=== PATIENT | female | born 1970 | race Caucasian/White ===

== ENCOUNTER → 2019-08-08 07:52 | Outpatient (CLI) | payer OTHER, BC, SELFPAY ==
[2019-08-08 08:21] LABS: Add Manual Diff / Slide Review NO; Basophils Absolute Auto 100 /uL (0-100); Basophils Percent Auto 1.4 % (0-2); Eosinophils Absolute Auto 300 /uL (0-450); Eosinophils Percent Auto 2.5 % (2-4); Hematocrit 41.3 % (36-46); Hemoglobin 13.6 g/dL (12.0-16.0); Lymphocytes Absolute Auto 2000 /uL (1100-4500); Lymphocytes Percent Auto 18.5 % (25-40); Mean Corpuscular HGB Conc 33.1 % (30-36); Mean Corpuscular Volume 84.8 fL (80-100); Monocytes Absolute Auto 600 /uL (0-900); Monocytes Percent Auto 5.2 % (3-14); Neutrophils Absolute Auto 7700 /uL (1500-7000); Neutrophils Percent Auto 72.4 % (50-75); Platelet Count 278 X10^3/uL (150-400); Red Blood Cell Count 4.86 X10^6/uL (4.0-5.2); Red Cell Distribution Width 13.9 % (11.6-14.8); White Blood Cell Count 10.7 X10^3/uL (4.5-11.0)
[2019-08-08 08:43] LABS: Alanine Aminotransferase 25 IU/L (<35); Albumin Globulin Ratio 1.4 (1.0-2.8); Alkaline Phosphatase 70 U/L (38-126); Aspartate Aminotransferase 30 IU/L (14-36); Bilirubin Total 0.5 mg/dL (0.2-1.3); Blood Urea Nitrogen 8 mg/dL (7-17); Calcium 9.2 mg/dL (8.4-10.2); Carbon Dioxide 29 mmol/L (22-32); Chloride 101 mmol/L (98-107); Cholesterol 200 mg/dL (140-199); Estimated Glomerular Filt Rate > 60.0 mL/min (>60); Globulin 2.9 g/dL (1.7-4.1); Glucose 119 mg/dL (70-100); HDL Cholesterol 45 mg/dL (40-60); HEMOLYSIS < 15 (0-50); LDL Cholesterol Calculated 90 mg/dL (<100); Potassium 4.7 mmol/L (3.4-5.1); Sodium 137 mmol/L (137-145); Total Protein 6.9 g/dL (6.3-8.2); Triglycerides 324 mg/dL (35-150)
== END ==
PROVIDERS: PCP Family Medicine; Visit Provider Family Medicine
DX: Z00.00 Encounter for general adult medical examination without abnormal findings (principal); Z13.220 Encounter for screening for lipoid disorders; Z13.6 Encounter for screening for cardiovascular disorders
CPT/HCPCS: 36415; 80053; 80061; 85025

== ENCOUNTER → 2021-11-15 07:20 | Outpatient (CLI) | payer BC, SELFPAY | PROVIDERS: PCP Family Medicine; Visit Provider Nurse Practitioner Family | DX: R30.0 Dysuria (principal) | CPT/HCPCS: 87086 ==

== ENCOUNTER → 2022-02-04 16:03 | Outpatient (CLI) | payer BC, SELFPAY ==
[2022-02-04 17:14] LABS: Follicle Stimulating Hormone 9.45 mIU/mL
[2022-02-04 17:39] LABS: TSH w/ Reflex to FT4 2.47 uIU/mL (0.47-4.68)
== END ==
PROVIDERS: PCP Family Medicine; Referring Provider Obstetrics & Gynecology; Visit Provider Obstetrics & Gynecology
DX: N93.9 Abnormal uterine and vaginal bleeding, unspecified (principal)
CPT/HCPCS: 36415; 83001; 84443

== ENCOUNTER → 2022-05-25 09:42 | Outpatient (CLI) | payer BC, SELFPAY | PROVIDERS: PCP Family Medicine; Visit Provider Registered Nurse | DX: R30.0 Dysuria (principal) | CPT/HCPCS: 87086 ==

== ENCOUNTER → 2022-07-04 08:56 | Outpatient (CLI) | payer BC, SELFPAY ==
[2022-07-04 09:55] LABS: Add Manual Diff / Slide Review NO; Basophils Absolute Auto 100 /uL (0-100); Basophils Percent Auto 1.2 % (0-2); Eosinophils Absolute Auto 200 /uL (0-450); Eosinophils Percent Auto 2.5 % (2-4); Hematocrit 37.8 % (36-46); Hemoglobin 12.4 g/dL (12.0-16.0); Lymphocytes Absolute Auto 2000 /uL (1100-4500); Lymphocytes Percent Auto 20.4 % (25-40); Mean Corpuscular HGB Conc 32.8 % (30-36); Mean Corpuscular Hemoglobin 27.4 PG (26-34); Mean Corpuscular Volume 83.5 fL (80-100); Monocytes Absolute Auto 600 /uL (0-900); Monocytes Percent Auto 5.8 % (3-14); Neutrophils Absolute Auto 6800 /uL (1500-7000); Neutrophils Percent Auto 70.1 % (50-75); Platelet Count 287 X10^3/uL (150-400); Red Blood Cell Count 4.52 X10^6/uL (4.0-5.2); Red Cell Distribution Width 14.1 % (11.6-14.8); White Blood Cell Count 9.6 X10^3/uL (4.5-11.0)
[2022-07-04 10:18] LABS: Alanine Aminotransferase 17 IU/L (<35); Albumin 3.7 g/dL (3.5-5.0); Albumin Globulin Ratio 1.2 (1.0-2.8); Alkaline Phosphatase 73 U/L (38-126); Aspartate Aminotransferase 17 IU/L (14-36); BUN Creatinine Ratio 11.5 (6-22); Bilirubin Total 0.3 mg/dL (0.2-1.3); Blood Urea Nitrogen 6 mg/dL (7-17); Calcium 8.7 mg/dL (8.4-10.2); Carbon Dioxide 28 mmol/L (22-32); Chloride 102 mmol/L (98-107); Cholesterol 191 mg/dL (140-199); Estimated Glomerular Filt Rate > 60 mL/min (>60); Globulin 3.1 g/dL (1.7-4.1); Glucose 108 mg/dL (70-100); HDL Cholesterol 46 mg/dL (40-60); HEMOLYSIS < 15 (0-50); LDL Cholesterol Calculated 95 mg/dL (<100); Potassium 4.5 mmol/L (3.4-5.1); Sodium 139 mmol/L (137-145); Total Protein 6.8 g/dL (6.3-8.2); Triglycerides 251 mg/dL (35-150)
[2022-07-04 10:40] LABS: TSH w/ Reflex to FT4 2.16 uIU/mL (0.47-4.68)
[2022-07-04 12:18] LABS: Creatinine Urine Random 107.6 mg/dL
[2022-07-04 12:22] LABS: Microalbumi Creatinin Ratio Ur 20.4 ug/mg CR (<30); Microalbumin Urine Random 2.2 mg/dL (0-1.6)
== END ==
PROVIDERS: PCP Family Medicine; Referring Provider Family Medicine; Visit Provider Family Medicine
DX: G89.29 Other chronic pain (principal); J45.20 Mild intermittent asthma, uncomplicated; M54.40 Lumbago with sciatica, unspecified side; R73.9 Hyperglycemia, unspecified; Z68.43 Body mass index [BMI] 50.0-59.9, adult
CPT/HCPCS: 36415; 80053; 80061; 82043; 82570; 83036; 84443; 85025

== ENCOUNTER → 2023-03-26 10:33 | Outpatient (CLI) | payer OTHER, BC, SELFPAY ==
--- NOTE | 2023-03-26 10:35 | DI.RAD.S_ITS ---
PROCEDURE: XR KNEE RT 3V INDICATIONS: bilateral knee pain, Left greater than right TECHNIQUE: 3 views of the knee were acquired. COMPARISON: [facility], , KNEE 3V RIGHT, 02/11/2016, 16:11. FINDINGS: Bones: No fractures or dislocations. No suspicious bony lesions. There is lateral tilt of patella. Mild osteoarthritic changes. Soft tissues: Trace joint effusion. No suspicious soft tissue calcifications. IMPRESSION: 1. Mild osseous ranges. 2. Lateral to the patella. 3. Trace knee joint effusion. Dictated by: Elizabeth Cortes M.D. on 03/26/2023 at 11:58 Approved by: Elizabeth Cortes M.D. on 03/26/2023 at 11:59
--- NOTE | 2023-03-26 10:35 | DI.RAD.S_ITS ---
PROCEDURE: XR KNEE LT 3V INDICATIONS: bilateral knee pain, Left greater than right TECHNIQUE: 3 views of the knee were acquired. COMPARISON: [facility], , KNEE 3V LEFT, 04/23/2009, 10:47. FINDINGS: Bones: No fractures or dislocations. No suspicious bony lesions. There is lateral tilt of patella. Soft tissues: Small joint effusion. No suspicious soft tissue calcifications. Soft tissue swelling in the area of the medial patella. IMPRESSION: 1. Lateral tilt of patella. And soft tissue swelling in the medial aspect of the patella. 2. Small knee joint effusion. 3. If clinical symptoms persist or clinical suspicion for internal derangement is high, MRI is suggested for further evaluation. Dictated by: Elizabeth Cortes M.D. on 03/26/2023 at 11:55 Approved by: Elizabeth Cortes M.D. on 03/26/2023 at 11:57
== END ==
PROVIDERS: PCP Family Medicine; Referring Provider Family Medicine; Visit Provider Family Medicine
DX: M22.8X2 Other disorders of patella, left knee (principal); M22.8X1 Other disorders of patella, right knee; M25.561 Pain in right knee; M25.562 Pain in left knee; M25.462 Effusion, left knee; M79.89 Other specified soft tissue disorders
CPT/HCPCS: 73562

== ENCOUNTER → 2024-01-01 08:32 | Outpatient (CLI) | payer BC, SELFPAY ==
--- NOTE | 2024-01-01 08:33 | DI.RAD.S_ITS ---
PROCEDURE: XR KNEE RT 3V INDICATIONS: chronic right knee pain TECHNIQUE: 3 views of the knee were acquired. COMPARISON: [facility], XR KNEE BILATERAL STANDING UP, 03/07/2016, 9:24. [facility], CR, XR KNEE LT 3V, 03/26/2023, 10:31. [facility], CR, XR KNEE RT 3V, 03/26/2023, 10:31. FINDINGS: Bones: No fractures or dislocations. No suspicious bony lesions. Mild tricompartmental knee joint degeneration. Lateral patellar subluxation. Soft tissues: No joint effusion. No suspicious soft tissue calcifications. IMPRESSION: 1. Mild degenerative joint disease. Dictated by: Elizabeth Cortes M.D. on 01/01/2024 at 10:48 Approved by: Elizabeth Cortes M.D. on 01/01/2024 at 10:54
== END ==
PROVIDERS: PCP Family Medicine; Referring Provider Family Medicine; Visit Provider Family Medicine
DX: M17.11 Unilateral primary osteoarthritis, right knee (principal)
CPT/HCPCS: 73562

== ENCOUNTER → 2024-03-10 08:53 | Outpatient (CLI) | payer BC, SELFPAY ==
[2024-03-10 10:17] LABS: Add Manual Diff / Slide Review NO; Basophils Absolute Auto 100 /uL (0-100); Eosinophils Absolute Auto 200 /uL (0-450); Eosinophils Percent Auto 2.6 % (2-4); Hematocrit 38.4 % (36-46); Hemoglobin 12.7 g/dL (12.0-16.0); Lymphocytes Absolute Auto 1800 /uL (1100-4500); Lymphocytes Percent Auto 18.7 % (25-40); Mean Corpuscular Hemoglobin 26.9 PG (26-34); Mean Corpuscular Volume 81.5 fL (80-100); Monocytes Absolute Auto 600 /uL (0-900); Monocytes Percent Auto 5.8 % (3-14); Neutrophils Absolute Auto 6900 /uL (1500-7000); Neutrophils Percent Auto 71.9 % (50-75); Platelet Count 266 X10^3/uL (150-400); Red Blood Cell Count 4.71 X10^6/uL (4.0-5.2); White Blood Cell Count 9.6 X10^3/uL (4.5-11.0)
[2024-03-10 10:41] LABS: Alanine Aminotransferase 37 IU/L (<35); Albumin 3.7 g/dL (3.5-5.0); Albumin Globulin Ratio 1.2 (1.0-2.8); Alkaline Phosphatase 83 U/L (38-126); Aspartate Aminotransferase 39 IU/L (14-36); BUN Creatinine Ratio 12.5 (6-22); Bilirubin Total 0.5 mg/dL (0.2-1.3); Blood Urea Nitrogen 7 mg/dL (7-17); Calcium 8.5 mg/dL (8.4-10.2); Carbon Dioxide 28 mmol/L (22-32); Chloride 105 mmol/L (98-107); Cholesterol 190 mg/dL (140-199); Estimated Glomerular Filt Rate > 60 mL/min (>60); Globulin 3.2 g/dL (1.7-4.1); Glucose 128 mg/dL (70-100); HDL Cholesterol 45 mg/dL (40-60); HEMOLYSIS < 15 (0-50); LDL Cholesterol Calculated 94 mg/dL (<100); Potassium 4.6 mmol/L (3.4-5.1); Sodium 138 mmol/L (137-145); Total Protein 6.9 g/dL (6.3-8.2); Triglycerides 257 mg/dL (35-150)
[2024-03-10 11:06] LABS: TSH w/ Reflex to FT4 1.87 uIU/mL (0.47-4.68)
[2024-03-11 09:52] LABS: Hemoglobin A1C% w Est Avg Glu 7.2 % (4.0-6.0)
[2024-03-12 03:41] LABS: Apolipoprotein B 101 mg/dL (<90)
== END ==
PROVIDERS: PCP Family Medicine; Referring Provider Family Medicine; Visit Provider Family Medicine
DX: R73.9 Hyperglycemia, unspecified (principal); M25.561 Pain in right knee; M25.562 Pain in left knee; J45.909 Unspecified asthma, uncomplicated; R73.01 Impaired fasting glucose; Z68.43 Body mass index [BMI] 50.0-59.9, adult
CPT/HCPCS: 36415; 80053; 80061; 82172; 83036; 84443; 85025

== ENCOUNTER → 2024-03-31 09:26 | Outpatient (CLI) | payer BC, SELFPAY | LOC: CAR 09:26 | PROVIDERS: PCP Family Medicine; Referring Provider Family Medicine; Visit Provider Family Medicine | DX: R00.2 Palpitations (principal) | CPT/HCPCS: 93246 ==

== ENCOUNTER → 2024-05-04 13:47 | Outpatient (CLI) | payer BC, SELFPAY ==
--- NOTE | 2024-05-04 14:03 | DIAB.MNT ---
Initial Diabetes Medical Nutrition Therapy Assessment Name: Kathe Hunt Date: 05/04/24 Time: 200-310 Dx: Type II Diabetes Provider: Nydia Archuleta presents for initial DM visit with spouse, Juan Ramon. New diagnosis. States diagnosis is not overwhelming, but states she does not really want to deal with it. No family history that she knows of for DM. Declined medication management from PCP, including GLP1 due to feeling as though if she loses the wt on her own she will not need any medication. Reports knee injury. Needs wt loss for surgery per report (maybe down to 200# before surgeon will consider?). Does not like meat much. Most meals reported are mostly carb with veggies and little protein. Proteins she likes: ground turkey, cheese, shrimp, neely, hot dogs, steak, nuts/pb, beans, tuna, sliced turkey. has chickens, does not like eggs though. States she knows very little about T2DM or hgA1c. Dental: 1 year Eye exam: due (last exam 1-5 years ago) States she often cannot eat in the morning. 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 Reports high intake of frozen soda prior to diagnosis. Has cut this out. Diet Recall: 4a: nothing or yogurt (Ellenos or Noosa) OR Belvita crackers 930-10a: previously fast food sandwich, now nothing or sushi 430-6p: green chile casserole with flour tortillas OR pasta with gr turkey and some veggie in sauce OR salad with chx 6-7p: nothing or ice cream or chocolate water: 4-5 x 16oz coffee with 2 TBS agave: 1c Anthropometrics: Ht: 67 Wt: 347# Weight history: Reports current wt for the last 20 years. States she has historically felt some discrimination based on body size in medical community, however does not feel this way with current PCP. 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 Self-Monitoring Blood Glucose: none currently but would like to check to help keep BG down without meds. Diabetes Medications: None Pertinent Labs: HgA1c: 6% 07/2022 7.2% 02/2024 Past Medical History: (Last Updated 03/17/24 @ 14:50 by Dennis Stafford MD) Hyperglycemia Palpitations Nutrition Rx: 1200-1400kcals (REE of 1754 x 1.1 activity factor -500-750kcals) Carbohydrates: 130-160 daily ; Meal:30-45g Snack:15-30g Nutrition Diagnosis: - Predicted excessive CHO intake r/t nutrition knowledge deficit and new dx of T2DM aeb diet recall and pt report - Self monitoring deficit r/t no SMBG supplies aeb pt report - Inconsistent energy intake r/t >5 hours between some meals aeb diet recall Intervention: This participant was very receptive. Provided appropriate educational handouts. Discussed the following topics: Completed intake assessment. Discussed barriers to care. Pathophysiology of T2DM HgA1c, its correlation to blood glucose numbers, and rationale for goal Potential for self-monitoring, how often, and when to check. Suggested checking at different times to evaluate meals Plate Method, impact of macronutrients on blood sugar, meal timing, carbohydrate counting, pairing macronutrients and spreading out carbohydrates for better blood glucose management Recommended servings for carbohydrates at meals and snacks Protein options and strategies Complication risk reduction: eye appt recommended Role of physical activity and following provider guidelines for safety Created SMART goals for patient self-care and success. Goals: Find eye doctor Add 1-2 pm balanced snack Keep CHO to 1c at meals Pair CHO and protein at meals and snacks Follow-up: CARINA FIGUEROA follow-up in 2-3 weeks Julissa Oneill RDN, [facility] Certified Diabetes Care and Building Drafting Officer P: [phone] Thank you for this referral
== END ==
LOC: DIET 13:47
PROVIDERS: PCP Family Medicine; Referring Provider Family Medicine
DX: E11.9 Type 2 diabetes mellitus without complications (principal); Z71.3 Dietary counseling and surveillance
CPT/HCPCS: 97802

== ENCOUNTER → 2024-05-24 09:39 | Outpatient (CLI) | payer BC, SELFPAY ==
--- NOTE | 2024-05-24 12:00 | DIAB.MNTFU ---
Follow-up Diabetes Medical Nutrition Therapy Assessment Name: Kathe Hunt Date: 05/24/24 Time: 1005-6346o Dx: Type II Diabetes Kathe presents for DM visit. Trying to avoid Dm medications. Also wanting to avoid meds in general, ie rx'd beta cole but wanting to avoid. Has cut out fast food and reduced sugar coffee. Still some days has coffee with agave, which seems to result in elevation. Estimates 1TBS in agave for coffee. As a result, endorses -17# with home weight of 330#. Increased veggies and protein. Reduced pasta and potatoes. Has been incorporating morning snack when waking more often. Historically difficult time eating in the morning. Extended time with fasting in afternoon. Nap mid day. Wants to know trends of BG through day and sleep. Interested in CGM. Has not called eye doctor. Considering [facility] eye provider. 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 Diet Recall: 4a: coffee with yogurt or cheese or belvita 10a: nuts or cheese 430p: dinner with family, onions beans, corn chips Anthropometrics: Ht: 67 Wt: 330# reported 347# last PCP Weight history: Reports current wt for the last 20 years. States she has historically felt some discrimination based on body size in medical community, however does not feel this way with current PCP. 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 Self-Monitoring Blood Glucose: Started SMBG. FBG this week sometimes in goal, sometimes elevated. Reports limited sleep some nights, which may be impacting numbers. 3 elevations after meals this week. Date Pre Post Pre Post Pre Post HS 05/18 166 05/19 126 198 220 05/20 145 166 05/21 146 103 05/22 125 213 05/23 143 116 05/24 118 Diabetes Medications: None Pertinent Labs: HgA1c: 6% 07/2022 7.2% 02/2024 Past Medical History: (Last Updated 03/17/24 @ 14:50 by Dennis Stafford MD) Hyperglycemia Palpitations Nutrition Rx: 1200-1400kcals (REE of 1754 x 1.1 activity factor -500-750kcals) Carbohydrates: 130-160 daily ; Meal:30-45g Snack:15-30g Nutrition Diagnosis: - Predicted excessive CHO intake r/t nutrition knowledge deficit and new dx of T2DM aeb diet recall and pt report - Self monitoring deficit r/t no SMBG supplies aeb pt report - Inconsistent energy intake r/t >5 hours between some meals aeb diet recall Intervention: This participant was very receptive. Provided appropriate educational handouts. Discussed the following topics: How sleep may impact BG Discussed insulin resistance and devendra phenomenon and stress hormone impact on BG Meal timing review Weight management impact on insulin resistance Carbs in sweeteners and coffee CGM Sample Reviewed CGM use and equipment Discussed when to check blood sugars using finger stick Reviewed high and low blood sugar signs/symptoms Provided education for self-administration of CGM placement Educated patient on alarm settings Discussed equipment disposal Created SMART goals for patient self-care and success. Goals: Find eye doctor- in progress Add 1-2 pm balanced snack- not met Keep CHO to 1c at meals - improved Pair CHO and protein at meals and snacks - in progress Measure coffee agave- new Keep food log book- new Wear 15 day CGM- new Follow-up: CARINA FIGUEROA follow-up in 2 weeks Julissa Oneill RDN, [facility] Certified Diabetes Care and Business Office Manager P: [phone] Thank you for this referral
== END ==
PROVIDERS: PCP Family Medicine; Referring Provider Family Medicine
DX: E11.9 Type 2 diabetes mellitus without complications (principal); Z71.3 Dietary counseling and surveillance
CPT/HCPCS: 97803

== ENCOUNTER → 2024-06-07 08:54 | Outpatient (CLI) | payer BC, SELFPAY ==
--- NOTE | 2024-06-07 09:45 | DIAB.FU ---
Follow-up Diabetes Education Assessment Name: Kathe Hunt Date: 06/07/24 Time: 9940a Dx: Type II Diabetes Kathe presents for DM visit. Trying to avoid Dm medications. Also wanting to avoid meds in general, ie rx'd beta cole but wanting to avoid. Encouraged her to discuss beta cole further with PCP and/or cardiology? Continues to adhere to lifestyle changes, ie cut out most sugars, fast food, and sugary drinks. Still adding agave to coffee, but this is <2 tsp per report. Kept some food log over the last two weeks while wearing FSL3 plus, however sensor fell of 5 days early. Still overdue for eye appt. main barrier is finding an eye provider she likes. Reports needing two knee replacements, has knee pain, has h/o difficulty with anesthesia. Not wanting surgery, however the pain dose limit her ability to do physical activity she likes. Anthropometrics: Ht: 67 Wt: 328# reported today 330# reported 05/24 347# last PCP Weight history: Reports current wt for the last 20 years. States she has historically felt some discrimination based on body size in medical community, however does not feel this way with current PCP. 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 Does not feel comfortable enough to go swimming at the local pool. Does not like stationary bike. walking sometimes is too painful. Self-Monitoring Blood Glucose: Most FBG <130mg/dl. Most postprandial range from 130-160mg/dl, with occasional 180mg/dl. Overall, well managed BG. TIR: 0% very high 0% high 100% in range 0% low avmg/dl GMI: 6.1% variability: 16.8% Diabetes Medications: None Pertinent Labs: HgA1c: 6% 07/2022 7.2% 02/2024 Past Medical History: (Last Updated 03/17/24 @ 14:50 by Dennis Stafford MD) Hyperglycemia Palpitations Intervention: This participant was very receptive. Provided appropriate educational handouts. Discussed the following topics: Blood sugar trends Blood sugar goals HgA1c goals and rationale Reducing DM risk complications Physical activity strategies coffee sweeteners Created SMART goals for patient self-care and success. Goals: Measure coffee agave- met Keep food log book- met Wear 15 day CGM- met Make an eye appt- new Follow-up: CARINA FIGUEROA follow-up prn. Encouraged her to call or message with any questions or follow-up needs. She agreed. Julissa Oneill RDN, [facility] Certified Diabetes Care and Draw In Hand P: [phone] Thank you for this referral
== END ==
PROVIDERS: PCP Family Medicine; Referring Provider Family Medicine
DX: E11.9 Type 2 diabetes mellitus without complications (principal); Z71.3 Dietary counseling and surveillance
CPT/HCPCS: G0108

== ENCOUNTER → 2024-06-09 09:51 | Outpatient (CLI) | payer BC, SELFPAY ==
[2024-06-09 10:46] LABS: Hemoglobin A1C% w Est Avg Glu 6.4 % (4.0-6.0)
[2024-06-09 10:58] LABS: Alanine Aminotransferase 33 IU/L (<35); Albumin 3.9 g/dL (3.5-5.0); Albumin Globulin Ratio 1.4 (1.0-2.8); Alkaline Phosphatase 76 U/L (38-126); Aspartate Aminotransferase 40 IU/L (14-36); Bilirubin Total 0.5 mg/dL (0.2-1.3); Blood Urea Nitrogen 9 mg/dL (7-17); Carbon Dioxide 27 mmol/L (22-32); Chloride 105 mmol/L (98-107); Estimated Glomerular Filt Rate > 60 mL/min (>60); Globulin 2.8 g/dL (1.7-4.1); Glucose 118 mg/dL (70-100); HEMOLYSIS < 15 (0-50); Potassium 4.3 mmol/L (3.4-5.1); Sodium 139 mmol/L (137-145); Total Protein 6.7 g/dL (6.3-8.2)
[2024-06-09 11:50] LABS: Vitamin B12 391 pg/mL (239-931)
== END ==
PROVIDERS: PCP Family Medicine; Referring Provider Family Medicine; Visit Provider Family Medicine
DX: E11.9 Type 2 diabetes mellitus without complications (principal); M25.561 Pain in right knee; Z68.43 Body mass index [BMI] 50.0-59.9, adult; M25.562 Pain in left knee
CPT/HCPCS: 36415; 80053; 82607; 83036; 84425

== ENCOUNTER → 2024-12-20 08:27 | Outpatient (CLI) | payer BC, SELFPAY ==
[2024-12-20 09:18] LABS: Influenza A - CEPHEID Flu A NEGATIVE (NEGATIVE); Influenza B - CEPHEID Flu B NEGATIVE (NEGATIVE); Respiratory Syncytial Virus Negative (Negative)
[2024-12-20 09:19] LABS: COVID-19 CEPHEID 4-PLEX PCR Negative (Negative)
== END ==
LOC: LAB 08:27
PROVIDERS: PCP Family Medicine; Visit Provider Family Medicine
DX: R05.1 Acute cough (principal)
CPT/HCPCS: 0241U